=== PATIENT | female | born 1970 | race Caucasian/White ===

== ENCOUNTER 2016-03-16 09:15 | Emergency (ER) | payer MEDICAID ==
[2016-03-16 09:26] VITALS: BP 126/90
--- NOTE | 2016-03-16 09:37 | ERNOTE ---
Time Seen by Provider: 03/16/16 09:27 Stated Complaint: SORE THROAT/FEVER Presenting Symptoms:: sore throat Source: patient Exam Limitations: no limitations Allergies/Adverse Reactions: Allergies No Known Allergies Allergy (Verified 03/16/16 09:26) Home Medications: HOME MEDICATIONS Metoprolol Tartrate [Lopressor] 25 mg PO DAILY 03/16/16 [Last Taken Unknown] Penicillin V Potassium [Pen-Vee K] 500 mg PO Q8H #30 tab 03/16/16 [Last Taken Unknown] - History of Present Ilness Narrative: Patient has had a cough and a fever up to 102 for two days. 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 Absent: recent illness ENT: Present: nose congestion, sore throat. Absent: nasal drainage, throat swelling Respiratory: Present: cough - minimal. Absent: shortness of breath Cardiology: Absent: chest pain Gastrointestinal/Abdominal: Present: nausea - minmal. Absent: vomiting, diarrhea, abdominal pain Genitourinary: Present: no symptoms reported Skin: Absent: rash Neurological: Present: See HPI - Patient's Past Medical History Patient History - Medical: No pertinent hx Patient History - Cardiac/Respiratory: Hypertension Patient History - Cancer: No Hx of Cancer Patient History - Surgical Procedures: No surgical history Patient History - Other: None - Social History Living Situations: home Psych History: No pertinent hx Smoking Status: Never smoker - Immunizations Hx Pneumococcal Vaccination: No History of Influenza Vaccine: No Physical Exam - Physical Exam General Appearance: Present: wd/wn, alert, no apparent distress Eye Exam: Normal inspection: bilateral, PERRL: bilateral Ears, Nose, Throat: Present: normal ENT inspection, hearing grossly normal, pharyngeal erythema - minimal. Absent: pharyngeal swelling Neck: Present: normal inspection, nontender. Absent: lymphadenopathy (R), lymphadenopathy (L) Respiratory: Present: no respiratory distress, normal breath sounds, no accessory muscle use, lungs clear Cardiovascular/Chest: Present: regular rate, rhythm, no murmur Neurological Exam: Present: alert, oriented, normal mood/affect Skin Exam: Present: normal color, warm/dry ED Progress - Results and Orders Patient's Lab Results:: I have reviewed the patient's lab results. - Vital Signs Patient's Vital Signs:: I have reviewed the patient's vital signs. Vital Signs: Vital Signs 03/16/16 09:22 Temperature 37.0 C Pulse Rate 104 H Respiratory 12 Rate Blood Pressure 126/90 O2 Sat by Pulse 100 Oximetry - Progress/Reassessment Chief Complaint: Sore Throat Progress Note-Subjective: 03/16/16 10:16 discussed results with patient Departure - Departure Clinical Impression: Strep throat Disposition: Home self-care Condition: Good Instructions: Strep Throat, [id number], Form - Excuse from Work, School, or Physical Activity Referrals: Balbir Seay MD [Primary Care Provider] - Prescriptions: Penicillin V Potassium [Pen-Vee K] 500 mg PO Q8H #30 tab
== END 2016-03-16 10:22 | disposition home or self-care (01) ==
LOC: ER 09:15
DX: J02.0 Streptococcal pharyngitis (principal); I10 Essential (primary) hypertension

== ENCOUNTER 2016-03-31 08:25 | Emergency (ER) | payer MEDICAID ==
[2016-03-31 08:32] VITALS: BP 138/73
--- OUTSIDE RECORDS SUMMARY | 2016-03-31 09:30 | XMS REPORT | Continuity of Care Document ---
:1970 Author Organization [facility] [employer] [place] [address] Care Team Providers Name Role Phone Geena Balbir Primary Care Provider [phone] Source Comments This disclosure is being made pursuant to the [employer] program and maynot contain all information available regarding this patient.[facility] Active Allergies and Adverse Reactions Not on File Current Medications Be aware that medications may not be up to date as of this document. Alwaysverify current medications with the patient. Not on file Active Problems Not on file Social History Tobacco Use Types Packs/Day Years Used Date Former Smoker Plan of Care Health Maintenance Due Date Last Done Comments Retired-Pertussis Vaccine Adult 1988 Retired-Tetanus Vaccine Adult 1988 Pap Smear 1990 Mammogram 2009 Retired-INFLUENZA VACCINE 10/09/2014 Results from Last 3 Months Not on file
--- NOTE | 2016-03-31 09:36 | ERNOTE ---
Time Seen by Provider: 03/31/16 09:25 Stated Complaint: SORE THROAT Presenting Symptoms:: sore throat Source: patient Exam Limitations: no limitations Immunizations: IMMUNIZATION HX Immunizations Up to Date Yes History of Influenza Vaccine No Hx Pneumococcal Vaccination No Allergies/Adverse Reactions: Allergies No Known Allergies Allergy (Verified 03/31/16 08:33) Home Medications: HOME MEDICATIONS Metoprolol Tartrate [Lopressor] 25 mg PO DAILY 03/16/16 [Last Taken Unknown] - History of Present Ilness Narrative: Patient was seen in the ER and diagnosed with strep on 03/16, she finished her antibiotics five days ago and the next day started to have a sore throat and low grade temperature again. 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 Date (Duration): 03/27/16 Frequency/Possible Cause: Reports: occasional episodes Prior Treatment: Reports: recently seen. Denies: currently on antibiotics Review of Systems - Review of Systems Constitutional: Present: recent illness, fever, chills, malaise ENT: Present: nose congestion, sore throat. Absent: ear pain Respiratory: Absent: shortness of breath, cough Cardiology: Absent: chest pain Gastrointestinal/Abdominal: Absent: nausea, vomiting, diarrhea, abdominal pain Genitourinary: Present: no symptoms reported Musculoskeletal: Present: muscle pain - mild general ache Skin: Absent: rash Neurological: Present: headache - Patient's Past Medical History Patient History - Medical: No pertinent hx Patient History - Cardiac/Respiratory: Hypertension Patient History - Cancer: No Hx of Cancer Patient History - Surgical Procedures: No surgical history Patient History - Other: None LMP (females 10-50): last week - Social History Living Situations: home Abuse History: No History of abuse Psych History: No pertinent hx Smoking Status: Former smoker Alcohol Use: none Drug Use: none - Immunizations Immunizations Up to Date: Yes Hx Pneumococcal Vaccination: No History of Influenza Vaccine: No Physical Exam - Physical Exam General Appearance: Present: wd/wn, alert, no apparent distress Eye Exam: Normal inspection: bilateral, PERRL: bilateral Ears, Nose, Throat: Present: pharyngeal erythema. Absent: pharyngeal swelling, tonsillar exudate Neck: Present: normal inspection, nontender. Absent: lymphadenopathy (R), lymphadenopathy (L) Respiratory: Present: no respiratory distress, normal breath sounds, lungs clear Cardiovascular/Chest: Present: regular rate, rhythm, no murmur Neurological Exam: Present: alert, oriented, normal mood/affect Skin Exam: Present: normal color, warm/dry ED Progress - Results and Orders Patient's Lab Results:: I have reviewed the patient's lab results. - Vital Signs Patient's Vital Signs:: I have reviewed the patient's vital signs. Vital Signs: Vital Signs 03/31/16 08:29 Temperature 37.4 C Pulse Rate 102 H Respiratory 16 Rate Blood Pressure 138/73 O2 Sat by Pulse 98 Oximetry - Progress/Reassessment Chief Complaint: Sore Throat Departure - Departure Clinical Impression: Upper respiratory infection Qualifiers: URI type: unspecified viral URI Qualified Code(s): J06.9 - Acute upper respiratory infection, unspecified; B97.89 - Other viral agents as the cause of diseases classified elsewhere Disposition: Home self-care Condition: Good Instructions: Upper Respiratory Infection, Adult, [id number] Referrals: Balbir Seay MD [Primary Care Provider] - (as needed)
== END 2016-03-31 09:34 | disposition home or self-care (01) ==
LOC: ER 08:25
DX: Z87.891 Personal history of nicotine dependence (principal); J06.9 Acute upper respiratory infection, unspecified; B97.89 Other viral agents as the cause of diseases classified elsewhere; I10 Essential (primary) hypertension